=== PATIENT | female | born 1955 | race Caucasian/White ===

== ENCOUNTER 2018-12-01 16:35 | Emergency (ER) | payer OTHER ==
--- OUTSIDE RECORDS SUMMARY | 2018-12-01 16:37 | XMS REPORT ---
:1955 Author Organization eClinicalWorks Care Team Providers Name Role Phone Lisa Espinoza Provider Role Unavailable Allergies No Known Allergies Problems Problem Type Condition Code Onset Dates Condition Status Problem Kidney stones N20.0 Active Medications Medication Code System Code Instructions Start Date End Date Status Dosage Bactrim DS [facility] 56472765502 800-160 MG Orally Feb 08, Feb 18, Active 1 tablet Twice a day 2017 2017 Results No Known Results Summary Purpose eClinicalWorks Submission
--- OUTSIDE RECORDS SUMMARY | 2018-12-01 16:37 | XMS REPORT ---
:1955 Author Organization eClinicalWorks Care Team Providers Name Role Phone Lisa Espinoza Provider Role Unavailable Allergies, Adverse Reactions, Alerts Substance Reaction Event Type N.K.D.A. Info Not Available Non Drug Allergy Problems Problem Type Condition Code Onset Dates Condition Status Assessment Hx: UTI (urinary tract infection) Z87.440 Active Problem Kidney stones N20.0 Active Medications Medication Code System Code Instructions Start Date End Date Status Dosage Bactrim DS NDC 0 Active not defined Results Name Result Date Reference Range Unit Abnormality Flag URINALYSIS AUTO W/O SCOPE (53908) ----JAYME 1+ 20171206 ----NIT neg 20171206 ----PROTEIN neg 20171206 ----pH 6.5 20171206 ----BLO trace 20171206 ----GLUCOSE neg 20171206 ----BILIRUBIN neg 20171206 ----KETONES neg 20171206 ----SPECIFIC GRAVITY 1.010 20171206 PVR ----PVR 0 [id number] Summary Purpose eClinicalWorks Submission
--- OUTSIDE RECORDS SUMMARY | 2018-12-01 16:37 | XMS REPORT ---
:1955 Author Organization eClinicalWorks Care Team Providers Name Role Phone Lisa Espinoza Provider Role Unavailable Allergies, Adverse Reactions, Alerts Substance Reaction Event Type N.K.D.A. Info Not Available Non Drug Allergy Problems Problem Type Condition Code Onset Dates Condition Status Assessment Kidney stones N20.0 Active Problem Kidney stones N20.0 Active Assessment Hx: UTI (urinary tract infection) Z87.440 Active Medications Medication Code Code Instructions Start End Status Dosage System Date Date Nortriptyline HCl [facility] [id number] 50 MG Orally Active 1 capsule Once a day at bedtime Metoprolol Tartrate [facility] 76518729377 25 MG Orally Active 1 tablet Twice a day with food Hydrochlorothiazide [facility] 35969496948 12.5 MG Orally Active 1 capsule Once a day in the morning Vitamin D3 [facility] [id number] 1000 UNIT Active 1 capsule Orally Once a day Results Name Result Date Reference Range Unit Abnormality Flag URINALYSIS AUTO W/O SCOPE (18596) ----NIT neg [id number] ----URO 0.2 [id number] ----PROTEIN neg [id number] ----pH 7.5 20180904 ----BLO neg [id number] ----GLUCOSE neg [id number] ----JAYME neg [id number] ----BILIRUBIN neg [id number] ----KETONES neg [id number] ----SPECIFIC GRAVITY 1.010 20180904 Summary Purpose eClinicalWorks Submission
[2018-12-01 17:22] LABS: Absolute Lymphocytes (CBC) 1.6 K/uL (0.7-4.9); Basophils % 0.9 % (0-1.3); Hematocrit 41.1 % (36.0-45.0); Lymphocytes % 18.3 % (15.3-44.8); MPV 8.3 fL (7.6-11.3); Monocytes % 7.2 % (3.3-12.3); RBC Red Blood Cell Count 4.96 M/uL (3.86-4.86)
--- NOTE | 2018-12-01 17:30 | RAD REPORT ---
EXAM DESCRIPTION: CT - Stone Protocol - 12/01/2018 5:17 pm CLINICAL HISTORY: Flank pain. FLANK PAIN TECHNIQUE: Axial images were obtained without oral or IV contrast. Lack of contrast limits solid org an and vascular assessment. The [id number] spans the entirety of the system partially obscuring uppermost abdomen and lung bases. Coronal reformatted images were obtained and reviewed. All CT scans are performed using dose optimization technique as appropriate and may include automated exposure control or mA/KV adjustment according to patient size. FINDINGS: The lower lung hel[place] are clear. Cholecystectomy clips. Imaged portions of the liver and spleen show no suspicious findings on non-contrast imaging. The panc reas and adrenal glands are normal. No pathologic lymphadenopathy in the abdomen or pelvis. Calcifications in both kidneys and the appearance of milk of calcium within cysts. No hydronephrosis. No obstructing genitourinary calculus. No bowel obstruction, free air, free fluid or abscess. Normal appendix noted.Sigmoid diverticulosis w ithout diverticulitis. Moderate lumbar degenerative changes. IMPRESSION: No obstructing calculus or hydronephrosis seen. Sigmoid diverticulosis coli without diverticulitis.
[2018-12-01 17:36] LABS: Albumin 3.8 g/dL (3.4-5.0); Bilirubin Direct 0.1 mg/dL (0-0.2); Bilirubin Total 0.3 mg/dL (0.2-1.0); Potassium 3.7 mmol/L (3.5-5.1); Protein, Total 7.6 g/dL (6.4-8.2)
[2018-12-01 17:36] LABS: Urine Blood TRACE (NEG); Urine Glucose NEGATIVE (NEG); Urine Protein NEGATIVE (NEG); Urine Specific Gravity 1.015 (1.005-1.030)
[2018-12-01] MEDS ORDERED: NA CHLORIDE 0.9% 1,000 ML ONE (17:39)
[2018-12-01 18:06] LABS: Urine Bacteria <20 /HPF (<20); Urine Culture Reflex Order NOT NEEDED; Urine RBC <5 /HPF (NONE SEEN)
--- NOTE | 2018-12-01 18:34 | ER ---
Nurse's Notes [facility] Name: Nargis Au Age: 63 yrs Sex: Female : 1955 Arrival Date: 12/01/2018 Time: 16:37 Bed 6 Private MD: Maria Isabel Krause K Diagnosis: Low back pain Presentation: 12/01 16:41 Presenting complaint: Patient states: right flank pain since last night, denies N/V/D la1 or fevers. Transition of care: patient was not received from another setting of care. Onset of symptoms was December 01, 2018. Risk Assessment: Do you want to hurt yourself or someone else? Patient reports no desire to harm self or others. Initial Sepsis Screen: Does the patient meet any 2 criteria? No. Patient's initial sepsis screen is negative. Does the patient have a suspected source of infection? No. Patient's initial sepsis screen is negative. Care prior to arrival: None. 16:41 Method Of Arrival: Ambulatory la1 16:41 Acuity: DEWEY 3 la1 Historical: - Allergies: 16:42 No Known Allergies; la1 - PMHx: 16:42 pvc; kidney stones; la1 - PSHx: 16:42 Cholecystectomy; D \T\ C; la1 - Immunization history:: Adult Immunizations up to date. - Social history:: Smoking status: Patient/guardian denies using tobacco. - Ebola Screening: : No symptoms or risks identified at this time. Screenin:00 Abuse screen: Denies threats or abuse. Denies injuries from another. Nutritional aj1 screening: No deficits noted. Tuberculosis screening: No symptoms or risk factors identified. 19:09 Fall Risk None identified. aj1 Assessment: 17:00 General: Appears in no apparent distress. comfortable, Behavior is calm, cooperative, aj1 appropriate for age. Pain: Complains of pain in left low back Pain radiates to posterior aspect of right lateral abdomen and anterior aspect of right lateral abdomen. Neuro: Level of Consciousness is awake, alert, obeys commands, Oriented to person, place, time, situation. Cardiovascular: Patient's skin is warm and dry. Respiratory: Airway is patent Respiratory effort is even, unlabored, Respiratory pattern is regular, symmetrical. GI: No signs and/or symptoms were reported involving the gastrointestinal system. : Reports history of kidney stones Denies burning with urination, urinary frequency. EENT: No signs and/or symptoms were reported regarding the EENT system. Derm: No signs and/or symptoms reported regarding the dermatologic system. Skin is pink, warm \T\ dry. normal. Musculoskeletal: No signs and/or symptoms reported regarding the musculoskeletal system. Circulation, motion, and sensation intact. Range of motion: intact in all extremities. 18:02 Reassessment: Patient appears in no apparent distress at this time. No changes from aj1 previously documented assessment. Patient and/or family updated on plan of care and expected duration. Pain level reassessed. Patient is alert, oriented x 3, equal unlabored respirations, skin warm/dry/pink. 19:09 Reassessment: Patient appears in no apparent distress at this time. No changes from aj1 previously documented assessment. Patient and/or family updated on plan of care and expected duration. Pain level reassessed. Patient is alert, oriented x 3, equal unlabored respirations, skin warm/dry/pink. Vital Signs: 16:42 BP 148 / 71; Pulse 74; Resp 16; Temp 97.8; Pulse Ox 98% on R/A; Weight 98.88 kg; Height la1 5 ft. 4 in. (162.56 cm); 17:45 BP 134 / 75; Pulse 74; Resp 18; Pulse Ox 100% on R/A; aj1 18:29 BP 129 / 76; Pulse 71; Resp 18; Pulse Ox 95% on R/A; aj1 16:42 Body Mass Index 37.42 (98.88 kg, 162.56 cm) la1 ED Course: 16:37 Patient arrived in ED. dp 16:38 Maria Isabel Krause MD is Private Physician. dp 16:41 Triage completed. la1 16:42 Arm band placed on left wrist. la1 16:44 [facility] pm1 16:44 Evin Wooten MD is Attending Physician. pm1 16:45 Raegan Bella RN is Primary Nurse. aj1 17:00 Patient has correct armband on for positive identification. aj1 17:00 No provider procedures requiring assistance completed. aj1 17:10 Initial lab(s) drawn, by me, sent to lab. Inserted saline lock: 22 gauge in right dh3 antecubital area, using aseptic technique. Blood collected. 17:14 CT completed. Patient tolerated procedure well. Patient moved back from CT. bq 17:17 CT Stone Protocol In Process Unspecified. EDMS 19:09 IV discontinued, intact, bleeding controlled, No redness/swelling at site. Pressure aj1 dressing applied. Administered Medications: 17:29 Drug: NS 0.9% 1000 ml Route: IV; Rate: 1000 ml; Site: right antecubital; hb 19:10 Follow up: IV Status: Completed infusion; IV Intake: 1000ml aj1 Intake: 19:10 IV: 1000ml; Total: 1000ml. aj1 Outcome: 18:35 Discharge ordered by MD. pm1 19:09 Discharged to home ambulatory. aj1 19:09 Condition: good 19:09 Discharge instructions given to patient, Instructed on discharge instructions, follow up and referral plans. Demonstrated understanding of instructions, follow-up care. 19:10 Patient left the ED. aj1 Signatures: Dispatcher [employer] EDSC Raegan Bella RN RN aj1 Ailyn Ramos Lee, RN RN la1 Felix Torres, RODNEY M[employer] INSTRUCTIONAL DESIGNER pm1 Shea Clark RN RN hb Herrera, Deanna 3 Giancarlo Hartmann
--- NOTE | 2018-12-01 18:35 | EDPHYS ---
Physician Documentation [facility] Name: Nargis Au Age: 63 yrs Sex: Female : 1955 Arrival Date: 12/01/2018 Time: 16:37 Bed 6 Private MD: Maria Isabel Krause K ED Physician Evin Wooten HPI: 12/01 17:05 This 63 yrs old Female presents to ER via Ambulatory with complaints of Right pm1 Flank Pain. 17:05 The patient complains of pain in the right low back. The pain does not radiate. Onset: pm1 The symptoms/episode began/occurred yesterday. Modifying factors: The symptoms are alleviated by nothing. the symptoms are aggravated by movement. Associated signs and symptoms: The patient has no apparent associated signs or symptoms, Pertinent negatives: diarrhea, dizziness, dysuria, fever, urinary frequency, headache, hematuria, nausea, vomiting. Severity of pain: in the emergency department the pain has improved. The patient has not recently seen a physician. Patient believes that she had a UTI 1 week ago and took over the counter medications and it resolved after a few days. Historical: - Allergies: 16:42 No Known Allergies; la1 - PMHx: 16:42 pvc; kidney stones; la1 - PSHx: 16:42 Cholecystectomy; D \T\ C; la1 - Immunization history:: Adult Immunizations up to date. - Social history:: Smoking status: Patient/guardian denies using tobacco. - Ebola Screening: : No symptoms or risks identified at this time. ROS: 17:05 Constitutional: Negative for fever, chills, and weight loss, Eyes: Negative for injury, pm1 pain, redness, and discharge, ENT: Negative for injury, pain, and discharge, Neck: Negative for injury, pain, and swelling, Cardiovascular: Negative for chest pain, palpitations, and edema, Respiratory: Negative for shortness of breath, cough, wheezing, and pleuritic chest pain, Abdomen/GI: Negative for abdominal pain, nausea, vomiting, diarrhea, and constipation. 17:05 : Negative for injury, bleeding, discharge, and swelling, MS/Extremity: Negative for injury and deformity, Skin: Negative for injury, rash, and discoloration. 17:05 Neuro: Negative for headache, weakness, numbness, tingling, and seizure. 17:05 Back: Positive for flank pain, on the right, Negative for decreased range of motion. Exam: 17:05 Constitutional: This is a well developed, well nourished patient who is awake, alert, pm1 and in no acute distress. Neck: Trachea midline, no thyromegaly or masses palpated, and no cervical lymphadenopathy. Supple, full range of motion without nuchal rigidity, or vertebral point tenderness. No Meningismus. Chest/axilla: Normal chest wall appearance and motion. Nontender with no deformity. No lesions are appreciated. Cardiovascular: Regular rate and rhythm with a normal S1 and S2. No gallops, murmurs, or rubs. Normal PMI, no JVD. No pulse deficits. Respiratory: Lungs have equal breath sounds bilaterally, clear to auscultation and percussion. No rales, rhonchi or wheezes noted. No increased work of breathing, no retractions or nasal flaring. Abdomen/GI: Soft, non-tender, with normal bowel sounds. No distension or tympany. No guarding or rebound. No evidence of tenderness throughout. Back: No spinal tenderness. No costovertebral tenderness. Full range of motion. Skin: Warm, dry with normal turgor. Normal color with no rashes, no lesions, and no evidence of cellulitis. MS/ Extremity: Pulses equal, no cyanosis. Neurovascular intact. Full, normal range of motion. 17:05 Neuro: Orientation: is normal, Motor: is normal, moves all fours, Sensation: is normal, no obvious gross deficits, Gait: is steady, at a normal pace, without difficulty. Vital Signs: 16:42 BP 148 / 71; Pulse 74; Resp 16; Temp 97.8; Pulse Ox 98% on R/A; Weight 98.88 kg; Height la1 5 ft. 4 in. (162.56 cm); 17:45 BP 134 / 75; Pulse 74; Resp 18; Pulse Ox 100% on R/A; aj1 18:29 BP 129 / 76; Pulse 71; Resp 18; Pulse Ox 95% on R/A; aj1 16:42 Body Mass Index 37.42 (98.88 kg, 162.56 cm) la1 MDM: 16:49 Patient medically screened. pm1 18:32 Data reviewed: vital signs. Data interpreted: Pulse oximetry: on room air is 95 %. pm1 Interpretation: normal. Counseling: I had a detailed discussion with the patient and/or guardian regarding: the historical points, exam findings, and any diagnostic results supporting the discharge/admit diagnosis, lab results, radiology results, the need for outpatient follow up, to return to the emergency department if symptoms worsen or persist or if there are any questions or concerns that arise at home. 18:32 ED course: Recommend MRI of back if no improvement. Impression is likely muscloskeletal pm1 pain with negative CT and labs for UTI, genitourinary stones, appendicitis given complaint of right flank pain. 18:32 ED course: Patient offered prescription for pain medications. Patient refused because pm1 she does not like medications that make her sleepy or drowsy. 12/01 16:57 Order name: Basic Metabolic Panel pm12/01 16:57 Order name: CBC with Diff pm1 12/01 16:57 Order name: Creatinine for Radiology; Complete Time: 18:23 pm1 12/01 16:57 Order name: Hepatic Function; Complete Time: 18:23 pm1 12/01 16:57 Order name: Lipase; Complete Time: 18:23 pm1 12/01 16:58 Order name: Basic Metabolic Panel; Complete Time: 18:23 EDMS 12/01 16:57 Order name: IV Saline Lock; Complete Time: 17:13 pm1 12/01 16:57 Order name: Labs collected and sent; Complete Time: 17:13 pm1 12/01 16:57 Order name: Urine Dipstick-Ancillary (obtain specimen); Complete Time: 16:59 pm1 12/01 16:58 Order name: CBC with Automated Diff; Complete Time: 17:33 EDMS 12/01 17:03 Order name: CT Stone Protocol; Complete Time: 17:33 pm1 12/01 17:07 Order name: Urine Dipstick--Ancillary (enter results); Complete Time: 18:23 ms 12/01 17:33 Order name: Urine Microscopic Only; Complete Time: 18:23 pm1 12/01 16:57 Order name: Urine Test (obtain specimen); Complete Time: 16:59 pm1 Administered Medications: 17:29 Drug: NS 0.9% 1000 ml Route: IV; Rate: 1000 ml; Site: right antecubital; hb 19:10 Follow up: IV Status: Completed infusion; IV Intake: 1000ml aj1 Disposition: 12/01/18 18:35 Discharged to Home. Impression: Low back pain. - Condition is Stable. - Discharge Instructions: Back Pain, Adult, Flank Pain, Adult. - Medication Reconciliation Form, Thank You Letter, Antibiotic Education, Prescription Opioid Use form. - Follow up: Emergency Department; When: As needed; Reason: Worsening of condition. Follow up: Private Physician; When: 2 - 3 days; Reason: Recheck today's complaints, Continuance of care, Re-evaluation by your physician. - Problem is new. - Symptoms have improved. Signatures: Dispatcher [employer] EDMS Raegan Bella RN RN aj1 Bentley Strauss RN RN la1 Felix Torres NP [employer] CLERK pm1 Shea Clark RN RN Corrections: (The following items were deleted from the chart) 19:10 18:35 12/01/2018 18:35 Discharged to Home. Impression: Low back pain. Condition is aj1 Stable. Forms are Medication Reconciliation Form, Thank You Letter, Antibiotic Education, Prescription Opioid Use. Follow up: Emergency Department; When: As needed; Reason: Worsening of condition. Follow up: Private Physician; When: 2 - 3 days; Reason: Recheck today's complaints, Continuance of care, Re-evaluation by your physician. Problem is new. Symptoms have improved. pm1
== END 2018-12-01 19:10 | disposition home or self-care (01) ==
LOC: ER 16:35
DX: M54.5 Low back pain (principal); K57.30 Diverticulosis of large intestine without perforation or abscess without bleeding
CPT/HCPCS: 36415; 74176; 76377; 80048; 80076; 81003; 81015; 83690; 85025; 96360; 96361; 99284; J7030

== ENCOUNTER 2020-02-17 10:25 | Emergency (ER) | payer OTHER ==
[2020-02-17 11:32] LABS: Absolute Lymphocytes (CBC) 1.4 K/uL (0.7-4.9); Basophils % 0.9 % (0-1.3); Hematocrit 38.2 % (36.0-45.0); Lymphocytes % 21.2 % (15.3-44.8); MPV 8.3 fL (7.6-11.3)
[2020-02-17] MEDS ORDERED: NA CHLORIDE 0.9% 1,000 ML ONE (11:37)
[2020-02-17 11:53] LABS: ALT/SGPT 28 U/L (12-78); AST/SGOT 17 U/L (15-37); Albumin 3.7 g/dL (3.4-5.0); Alkaline Phosphatase 114 U/L (45-117); BUN Blood Urea Nitrogen 10 mg/dL (7-18); Bicarbonate 27 mmol/L (21-32); Bilirubin Direct < 0.1 mg/dL (0-0.2); Bilirubin Total 0.3 mg/dL (0.2-1.0); Glucose Level 105 mg/dL (74-106); Lipase 41 U/L (73-393); Potassium 3.5 mmol/L (3.5-5.1); Protein, Total 7.4 g/dL (6.4-8.2); Sodium Level 141 mmol/L (136-145); Troponin (Emerg Dept Use Only) < 0.02 ng/mL (0.0-0.045)
--- NOTE | 2020-02-17 12:15 | RAD REPORT ---
EXAM DESCRIPTION: CT - Abdomen Pelvis W Contrast - 02/17/2020 11:56 am CLINICAL HISTORY: Abdominal pain COMPARISON: 2019 TECHNIQUE: Computed axial tomography of the abdomen pelvis was obtained. 100 cc Isovue-300 was admin istered intravenously. Oral contrast was not requested which limits evaluation of bowel. All CT scans are performed using dose optimization technique as appropriate and may include automated exposure control or mA/KV adjustment according to patient size. FINDINGS: The liver, spleen, pancreas, and adrenals appear unremarkable. Bilateral renal cysts and calculi. 11 millimeter calcification lies within the posterior aspect of a 23 millimeter cystic structure within the right kidney. This may represent a caliceal diverticulum co ntaining calculus. Mild renal cortical thinning perhaps secondary to prior inflammation Diverticula stem from the colon without evidence of diverticulitis. No adnexal mass. An abnormal appendix is not seen. Tiny umbilical hernia. Cholecystectomy IMPRESSION: Bilateral renal calculi Possible right calyceal diverticulum containing a calculus
[2020-02-17 12:36] LABS: Urine Bacteria NONE SEEN /HPF (<20); Urine Culture Reflex Order NOT NEEDED; Urine RBC NONE SEEN /HPF (NONE SEEN)
[2020-02-17 13:49] LABS: Urine Blood NEGATIVE (NEG); Urine Glucose NEGATIVE (NEG); Urine Protein NEGATIVE (NEG); Urine pH 6.5 (5.0-7.0)
--- NOTE | 2020-02-17 14:19 | ER ---
Nurse's Notes [facility] Name: Nargis Au Age: 64 yrs Sex: Female : 1955 Arrival Date: 02/17/2020 Time: 10:32 Bed 19 Private MD: Maria Isabel Krause K Diagnosis: Unspecified abdominal pain Presentation: 02/16 10:40 Chief complaint: Patient states: Upper abdominal pain that wraps around to back for ll1 Sunday. 1 episode of vomiting on Sunday, little nausea since. No fever. Coronavirus screen: Client denies travel out of the [place] in the last 14 days. nausea, vomiting. Client presents with at least one sign or symptom that may indicate coronavirus-19. Standard/surgical mask placed on the client. Ebola Screen: Patient denies travel to an Ebola-affected area in the 21 days before illness onset. Initial Sepsis Screen: Does the patient meet any 2 criteria? No. Patient's initial sepsis screen is negative. Does the patient have a suspected source of infection? Yes: Acute abdominal pain. Risk Assessment: Do you want to hurt yourself or someone else? Patient reports no desire to harm self or others. Onset of symptoms was January 13, 2020. 10:40 Method Of Arrival: Ambulatory ll1 10:40 Acuity: DEWEY 3 ll1 Historical: - Allergies: 10:42 No Known Allergies; ll1 - PMHx: 10:42 Kidney stones; PVC; ll1 - PSHx: 10:42 Cholecystectomy; D \T\ C; ll1 - Immunization history:: Flu vaccine is not up to date. - Social history:: Smoking status: Patient denies any tobacco usage or history of. Screenin:21 Abuse screen: Denies threats or abuse. Denies injuries from another. Nutritional ph screening: No deficits noted. Tuberculosis screening: No symptoms or risk factors identified. Fall Risk None identified. Assessment: 11:41 General: Appears in no apparent distress. comfortable, Behavior is calm, cooperative, ph appropriate for age. Pain: Complains of pain in right upper quadrant Pain radiates to back Pain Quality of pain is described as sharp, stabbing. Neuro: Level of Consciousness is awake, alert, obeys commands, Oriented to person, place, time, situation. Cardiovascular: Capillary refill < 3 seconds in bilateral fingers Patient's skin is warm and dry. Respiratory: Airway is patent Respiratory effort is even, unlabored, Respiratory pattern is regular, symmetrical. GI: Abdomen is round non-distended, Reports upper abdominal pain, nausea, vomiting, on Jovi Patient currently denies diarrhea. Derm: Skin is intact, is healthy with good turgor, Skin is pink, warm \T\ dry. Musculoskeletal: Circulation, motion, and sensation intact. Range of motion: intact in all extremities. 11:50 Reassessment: Patient appears in no apparent distress at this time. Patient and/or ph family updated on plan of care and expected duration. Pain level reassessed. Patient is alert, oriented x 3, equal unlabored respirations, skin warm/dry/pink. Pt taken to CT via wheelchair. 12:50 Reassessment: Patient appears in no apparent distress at this time. Patient and/or ph family updated on plan of care and expected duration. Pain level reassessed. Patient is alert, oriented x 3, equal unlabored respirations, skin warm/dry/pink. 13:53 Reassessment: Patient appears in no apparent distress at this time. Patient and/or ph family updated on plan of care and expected duration. Pain level reassessed. Patient is alert, oriented x 3, equal unlabored respirations, skin warm/dry/pink. Vital Signs: 10:40 BP 140 / 56; Pulse 79; Resp 18; Temp 98.3; Pulse Ox 100% ; Weight 95.25 kg; Height 5 ll1 ft. 4 in. (162.56 cm); Pain 5/10; 12:14 BP 125 / 78; Pulse 72; Resp 18; Pulse Ox 100% on R/A; ph 13:30 BP 112 / 73; Pulse 71; Resp 18; Pulse Ox 100% on R/A; ph 14:50 BP 118 / 78; Pulse 72; Resp 16; Temp 97.8; Pulse Ox 99% on R/A; ph 10:40 Body Mass Index 36.05 (95.25 kg, 162.56 cm) ll1 ED Course: 10:32 Patient arrived in ED. mr 10:32 Maria Isabel Krause MD is Private Physician. mr 10:42 Triage completed. ll1 10:42 Arm band placed on Patient placed in an exam room, on a stretcher. ll1 10:44 Brandi Freeman RN is Primary Nurse. ph 10:44 Felix Torres NP is PHCP. pm1 10:44 Seth Flores MD is Attending Physician. pm1 11:21 Initial lab(s) drawn, by me, sent to lab. EKG done. Inserted saline lock: 20 gauge in ph right antecubital area, using aseptic technique. Blood collected. 11:22 Patient has correct armband on for positive identification. Placed in gown. Bed in low ph position. Call light in reach. Side rails up X 1. Pulse ox on. NIBP on. Door closed. Warm blanket given. 11:56 CT Abd/Pelvis - IV Contrast Only In Process Unspecified. EDMS 14:50 No provider procedures requiring assistance completed. IV discontinued, intact, ph bleeding controlled, No redness/swelling at site. Pressure dressing applied. Administered Medications: 11:50 Drug: NS 0.9% 1000 ml Route: IV; Rate: 1000 ml; Site: right antecubital; ph 14:52 Follow up: Response: No adverse reaction; IV Status: Completed infusion; IV Intake: ph 1000ml Intake: 14:52 IV: 1000ml; Total: 1000ml. ph Outcome: 14:18 Discharge ordered by . pm1 14:50 Discharged to home ambulatory. ph 14:50 Condition: good 14:50 Discharge instructions given to patient, Instructed on discharge instructions, follow up and referral plans. Demonstrated understanding of instructions, follow-up care. 14:50 Patient left the ED. ph Signatures: Dispatcher [employer] EDNM Natalie Rivera mr Brandi Freeman RN RN Felix Torres, RODNEY POOL LIFEGUARD pm1 Shola Garcia RN RN ll1
--- NOTE | 2020-02-17 14:19 | EDPHYS ---
Physician Documentation [facility] Name: Nargis Au Age: 64 yrs Sex: Female : 1955 Arrival Date: 02/17/2020 Time: 10:32 Bed 19 Private MD: Maria Isabel Krause K ED Physician Seth Flores HPI: 02/16 11:05 This 64 yrs old Female presents to ER via Ambulatory with complaints of pm1 Abdominal Pain, Back Pain. 11:05 The patient presents with abdominal pain in the epigastric area. pm1 11:05 Onset: The symptoms/episode began/occurred 4 day(s) ago. The symptoms radiate to back. pm1 Associated signs and symptoms: Pertinent positives: vomit x 1 Sunday . The symptoms are described as burning. Modifying factors: The symptoms are alleviated by decreased PO intake. the symptoms are aggravated by food. Severity of pain: in the emergency department the pain has improved. The patient has not recently seen a physician. Historical: - Allergies: 10:42 No Known Allergies; ll1 - PMHx: 10:42 Kidney stones; PVC; ll1 - PSHx: 10:42 Cholecystectomy; D \T\ C; ll1 - Immunization history:: Flu vaccine is not up to date. - Social history:: Smoking status: Patient denies any tobacco usage or history of. ROS: 11:05 Constitutional: Negative for fever, chills, and weight loss, Neck: Negative for injury, pm1 pain, and swelling, Cardiovascular: Negative for chest pain, palpitations, and edema, Respiratory: Negative for shortness of breath, cough, wheezing, and pleuritic chest pain. 11:05 : Negative for injury, bleeding, discharge, and swelling, MS/Extremity: Negative for injury and deformity, Skin: Negative for injury, rash, and discoloration, Neuro: Negative for headache, weakness, numbness, tingling, and seizure. 11:05 Abdomen/GI: Positive for abdominal pain, nausea and vomiting, Negative for diarrhea, constipation. 11:05 Back: Positive for pain. Exam: 11:05 Constitutional: This is a well developed, well nourished patient who is awake, alert, pm1 and in no acute distress. Head/Face: Normocephalic, atraumatic. Chest/axilla: Normal chest wall appearance and motion. Nontender with no deformity. No lesions are appreciated. Cardiovascular: Regular rate and rhythm with a normal S1 and S2. No gallops, murmurs, or rubs. Normal PMI, no JVD. No pulse deficits. Respiratory: Lungs have equal breath sounds bilaterally, clear to auscultation and percussion. No rales, rhonchi or wheezes noted. No increased work of breathing, no retractions or nasal flaring. 11:05 Back: No spinal tenderness. No costovertebral tenderness. Full range of motion. Skin: Warm, dry with normal turgor. Normal color with no rashes, no lesions, and no evidence of cellulitis. MS/ Extremity: Pulses equal, no cyanosis. Neurovascular intact. Full, normal range of motion. 11:05 Abdomen/GI: Inspection: abdomen appears normal, Palpation: soft, in all quadrants, mild abdominal tenderness, in the epigastric area. 11:05 Neuro: Exam negative for acute changes, Orientation: is normal, Mentation: is normal, Motor: is normal, moves all fours. Vital Signs: 10:40 BP 140 / 56; Pulse 79; Resp 18; Temp 98.3; Pulse Ox 100% ; Weight 95.25 kg; Height 5 ll1 ft. 4 in. (162.56 cm); Pain 5/10; 12:14 BP 125 / 78; Pulse 72; Resp 18; Pulse Ox 100% on R/A; ph 13:30 BP 112 / 73; Pulse 71; Resp 18; Pulse Ox 100% on R/A; ph 14:50 BP 118 / 78; Pulse 72; Resp 16; Temp 97.8; Pulse Ox 99% on R/A; ph 10:40 Body Mass Index 36.05 (95.25 kg, 162.56 cm) ll1 MDM: 10:44 Patient medically screened. pm1 14:17 Data reviewed: vital signs. Data interpreted: Pulse oximetry: on room air is 100 %. pm1 Interpretation: normal. Counseling: I had a detailed discussion with the patient and/or guardian regarding: the historical points, exam findings, and any diagnostic results supporting the discharge/admit diagnosis, lab results, radiology results, the need for outpatient follow up, a mobile development manager, a urologist, to return to the emergency department if symptoms worsen or persist or if there are any questions or concerns that arise at home. 14:17 ED course: Patient did not want any medications from the ER for prescription. She said pm1 that she would just take some OTC pepcid and will follow up with GI as recommended. 02/16 10:54 Order name: Basic Metabolic Panel; Complete Time: 11:53 pm1 02/16 10:54 Order name: CBC with Diff; Complete Time: 11:37 pm1 02/16 10:54 Order name: Hepatic Function; Complete Time: 11:53 pm1 02/16 10:54 Order name: Lipase; Complete Time: 11:53 pm1 02/16 10:54 Order name: Troponin (emerg Dept Use Only); Complete Time: 11:53 pm1 02/16 12:19 Order name: Urine Microscopic Only; Complete Time: 13:00 pm1 02/16 10:54 Order name: IV Saline Lock; Complete Time: 11:21 pm1 02/16 10:54 Order name: Labs collected and sent; Complete Time: 11:21 pm1 02/16 10:54 Order name: CT Abd/Pelvis - IV Contrast Only; Complete Time: 12:18 pm1 02/16 10:54 Order name: EKG; Complete Time: 10:55 pm1 02/16 12:41 Order name: CREATININE WHOLE BLOOD; Complete Time: 13:00 EDMS 02/16 13:46 Order name: Urine Dipstick--Ancillary (enter results) bd 02/16 13:46 Order name: Urine Dipstick-Ancillary; Complete Time: 14:17 EDMS 02/16 10:54 Order name: NPO; Complete Time: 11:21 pm1 02/16 10:54 Order name: Urine Dipstick-Ancillary (obtain specimen); Complete Time: 12:13 pm1 02/16 10:54 Order name: EKG - Nurse/Tech; Complete Time: 11:20 pm1 Administered Medications: 11:50 Drug: NS 0.9% 1000 ml Route: IV; Rate: 1000 ml; Site: right antecubital; ph 14:52 Follow up: Response: No adverse reaction; IV Status: Completed infusion; IV Intake: ph 1000ml Disposition: 16:44 Co-signature as Attending Physician, Seth Flores MD. rn Disposition: 02/17/20 14:18 Discharged to Home. Impression: Unspecified abdominal pain. - Condition is Stable. - Discharge Instructions: Abdominal Pain, Adult. - Medication Reconciliation Form, Thank You Letter, Antibiotic Education, Prescription Opioid Use form. - Follow up: Emergency Department; When: As needed; Reason: Worsening of condition. Follow up: Private Physician; When: 2 - 3 days; Reason: Recheck today's complaints, Continuance of care, Re-evaluation by your physician. - Problem is new. - Symptoms have improved. Signatures: Dispatcher [employer] EDMS Seth Flores MD MD rn Brandi Freeman RN RN ph Felix Torres, BAKING POWDER MIXER BAKING POWDER MIXER pm1 Shola Garcia RN RN ll1 Corrections: (The following items were deleted from the chart) 14:50 14:18 02/17/2020 14:18 Discharged to Home. Impression: Unspecified abdominal pain. ph Condition is Stable. Forms are Medication Reconciliation Form, Thank You Letter, Antibiotic Education, Prescription Opioid Use. Follow up: Emergency Department; When: As needed; Reason: Worsening of condition. Follow up: Private Physician; When: 2 - 3 days; Reason: Recheck today's complaints, Continuance of care, Re-evaluation by your physician. Problem is new. Symptoms have improved. pm1
[2020-02-17 15:11] VITALS: BP 118/78; TEMP 97.8; O2SAT 99
--- NOTE | 2020-02-18 05:57 | EKG ---
Test Date: 2020-02-17 Test Time: 11:38:49 Customer Accounts Advisor: PH MEASUREMENT RESULTS: Intervals: Rate: 72 [place]: 136 QRSD: 106 QT: 392 QTc: 429 [place]: P: 39 [place]: 136 QRS: 13 T: 2 INTERPRETIVE STATEMENTS: Normal sinus rhythm Low voltage QRS Nonspecific ST and T wave abnormality Abnormal ECG Compared to ECG 08/07/2008 08:24:22 Low QRS voltage now present ST (T wave) deviation now present Electronically Signed On 02-18-20 05:55:40 CDT by Isac Arambula
--- OUTSIDE RECORDS SUMMARY | 2020-02-19 13:08 | XMS REPORT | Continuity of Care Document ---
:1955 Author Organization [facility] t Address [facility] [place] [address] Care Team Providers Name Role Phone Unavailable Unavailable Unavailable Problems Condition Condition Condition Status Onset Resolution Last Treating Co mments Source Name Details Category Date Date Treatment Clinician Date Kidney Kidney Problem Active [facility] stones stones kes - [facility] ent Clinics Allergies, Adverse Reactions, Alerts This patient has no known allergies or adverse reactions. Medications Ordered Filled Start Stop Current Ordering Indication Dosage Frequency Signature Comments Components Source Medication Medication Date Date Medication? Clinician (SIG) Name Name Nortriptyli Nortriptyli Yes Lisa [address] [facility] ne HCl ne HCl Olga at bedtime [facility] u[facility] - [facility] ent Clinics Metoprolol Metoprolol Yes Lisa [address] [facility] Tartrate Tartrate [place] with food [facility] - [facility] ent Clinics Hydrochloro Hydrochloro Yes Lisa [address] [facility] thiazide thiazide [place] in the [facility] Vitamin D3 Vitamin D3 Yes Lisa [address] [facility] [place] [facility] ent [facility] Procedures This patient has no known procedures. Encounters Start End Encounter Admission Attending Care Care Encounter Source Date/Time Date/Time Type Type Clinicians Facility Department ID 2019-10-07 2019-10-07 Outpatient Daniel Khan [id number] [facility] 13:14:00 13:14:00 t Specialty/U Renetta kes - Specialty rology [facility] l [facility] ent Clinics 2019-09-03 2019-09-03 Outpatient Daniel Khan [id number] [facility] 09:00:00 09:00:00 t Specialty/U Renetta kes - Specialty rology [facility]Urology Clinic l [facility] ent Clinics 2019-03-04 2019-03-04 Outpatient Daniel Khan [id number] [facility] 08:15:00 08:15:00 t Specialty/U Renetta kes - Specialty rology [facility]Urology Clinic l Clinic Outpati ent Clinics 2018-09-04 2018-09-04 Outpatient Daniel [place] [id number] [facility] 09:00:00 09:00:00 t Specialty/U Renetta kes - Specialty rology [facility]Urology Clinic l Clinic [facility] Clinics 2018-02-08 2018-02-08 Outpatient Daniel [place] [id number] [facility] 09:59:00 09:59:00 t Specialty/U Renetta kes - Specialty rology [facility]Urology Clinic l Clinic Outpati ent Clinics 2017-12-06 2017-12-06 Outpatient Daniel Sanchezt [id number] [facility] 11:00:00 11:00:00 t Specialty/U Renetta kes - Specialty rology [facility]Urology Clinic l Clinic [facility] ent Clinics Results This patient has no known results.
== END 2020-02-17 14:50 | disposition home or self-care (01) ==
LOC: ER 10:25
DX: R10.13 Epigastric pain (principal); Z87.442 Personal history of urinary calculi
CPT/HCPCS: 93005; 85025; 80048; 36415; 82565; 80076; 84484; 83690; 74177; Q9967; J7030; 81003; 81015; 96360; 96361; 99284

== ENCOUNTER 2024-06-04 17:40 | Emergency (ER) | payer OTHER ==
--- NOTE | 2024-06-04 19:15 | RAD REPORT ---
EXAMINATION: XR RIGHT FOOT CLINICAL INDICATION: Female, 69 years old. PAIN TECHNIQUE: Multiple views of the right foot were obtained. COMPARISON: No prior exam. FINDINGS: No acute fracture or dislocation. Small posterior moderate to large plantar calcaneal spur .
--- NOTE | 2024-06-04 19:56 | ER ---
Nurse's Notes [facility] Name: Nargis Au Age: 69 yrs Sex: Female : 1955 Arrival Date: 06/04/2024 Time: 17:40 Bed 20 Private MD: Diagnosis: Pain in right foot Presentation: 06/04 18:14 Chief complaint: Patient states: Pain to right foot - denies injury. Coronavirus ld1 screen: At this time, the client does not indicate any symptoms associated with coronavirus-19. Ebola Screen: No symptoms or risks identified at this time. Risk Assessment: Do you want to hurt yourself or someone else? Patient reports no desire to harm self or others. Onset of symptoms was June 04, 2024. 18:14 Method Of Arrival: Wheelchair ld1 18:14 Acuity: DEWEY 4 ld1 18:16 Initial Sepsis Screen: Does the patient meet any 2 criteria? No. Patient's initial ld1 sepsis screen is negative. Does the patient have a suspected source of infection? No. Patient's initial sepsis screen is negative. Triage Assessment: 18:15 General: Appears in no apparent distress. comfortable, Behavior is calm, cooperative, ld1 appropriate for age. Pain: Complains of pain in right foot Pain does not radiate. Pain currently is 8 out of 10 on a pain scale. Quality of pain is described as throbbing, Pain began 2-3 days ago. Is continuous. EENT: No signs and/or symptoms were reported regarding the EENT system. Neuro: Level of Consciousness is awake, alert, obeys commands, Oriented to person, place, time, situation. Cardiovascular: Capillary refill < 3 seconds Patient's skin is warm and dry. Respiratory: Airway is patent Respiratory effort is even, unlabored. GI: Abdomen is round non-distended. : No signs and/or symptoms were reported regarding the genitourinary system. Derm: No signs and/or symptoms reported regarding the dermatologic system. Musculoskeletal: No signs and/or symptoms reported regarding the musculoskeletal system. Historical: - Allergies: 18:15 No Known Allergies; ld1 - PMHx: 18:15 Kidney stones; PVC; ld1 - Immunization history:: Adult Immunizations up to date. - Infectious Disease History:: Denies. - Social history:: Smoking status: Patient denies any tobacco usage or history of. Screenin:30 [facility] ED Fall Risk Assessment (Adult) History of falling in the last 3 months, kc6 including since admission No falls in past 3 months (0 pts) Confusion or Disorientation No (0 pts) Intoxicated or Sedated No (0 pts) Impaired Gait Yes (1 pt) Mobility Assist Device Used No (0 pt) Altered Elimination No (0 pt) Score/Fall Risk Level 0 - 2 = Low Risk Oriented to surroundings, Maintained a safe environment, Educated pt \T\ family on fall prevention, incl call for assistance when getting out of bed. Abuse screen: Denies threats or abuse. Denies injuries from another. Nutritional screening: No deficits noted. Tuberculosis screening: No symptoms or risk factors identified. Assessment: 18:30 General: Appears in no apparent distress. comfortable, well groomed, well developed, kc6 Behavior is calm, cooperative, appropriate for age. Pain: Complains of pain in right foot. Neuro: Level of Consciousness is awake, alert, obeys commands, Oriented to person, place, time, situation, Appropriate for age. Cardiovascular: Capillary refill < 3 seconds. Respiratory: Airway is patent Trachea midline Respiratory effort is even, unlabored, Respiratory pattern is regular, symmetrical. GI: No signs and/or symptoms were reported involving the gastrointestinal system. : No signs and/or symptoms were reported regarding the genitourinary system. EENT: No signs and/or symptoms were reported regarding the EENT system. Derm: No signs and/or symptoms reported regarding the dermatologic system. Skin is intact, is healthy with good turgor, Skin is pink, warm \T\ dry. Musculoskeletal: Range of motion: limited in right ankle. Vital Signs: 18:14 Temp 98.5(TE); ld1 18:16 Pulse 91; Resp 18; Pulse Ox 97% on R/A; Weight 96.62 kg; Height 5 ft. 4 in. ; Pain 8/10;ld1 18:17 BP 125 / 66; ld1 20:05 BP 123 / 67; Pulse 84; Resp 18; Pulse Ox 98% ; cp4 18:16 Body Mass Index 36.56 (96.62 kg, 162.56 cm) ld1 18:16 Pain Scale: Adult ld1 ED Course: 17:44 Patient arrived in ED. ra3 18:04 Ware, Ismael, MD is Attending Physician. ec2 18:04 Eugenie Waggoner FNP-C is [facility]. kb 18:15 Triage completed. ld1 18:15 Arm band placed on right wrist. ld1 18:19 Ching Macdonald, RN is Primary Nurse. kc6 18:30 Patient has correct armband on for positive identification. Bed in low position. Call kc6 light in reach. Side rails up X 1. Pulse ox on. NIBP on. Door closed. Noise minimized. Lights dimmed. Warm blanket given. Pillow given. 18:30 Patient maintains SpO2 saturation greater than 95% on room air. kc6 18:53 Foot Right 3 View XRAY In Process Unspecified. EDMS 19:02 Report given to Alexandra Gregorio RN. kc6 20:26 Provided Education on: foot pain. cp4 20:26 No provider procedures requiring assistance completed. Patient did not have IV access cp4 during this emergency room visit. Administered Medications: No medications were administered Medication: 20:26 VIS not applicable for this client. cp4 Outcome: 19:56 Discharge ordered by . kb 20:26 Discharged to home ambulatory, cp4 20:26 Condition: stable 20:26 Discharge instructions given to patient, Instructed on discharge instructions, follow up and referral plans. medication usage, Demonstrated understanding of instructions, follow-up care, medications, Prescriptions given X 1, 20:27 Patient left the ED. cp4 Signatures: Dispatcher [employer] EDWI Eugenie Waggoner FNP-C FNP-Marianna Amaya RN RN ld1 Ching Macdonald, SOLANGE RN [facility] Ismael Ware MD MD ec2 Potter, Christina cp4 Leatha Ling ra3
--- NOTE | 2024-06-04 19:56 | EDPHYS ---
Physician Documentation [facility] Name: Nargis Au Age: 69 yrs Sex: Female : 1955 Arrival Date: 06/04/2024 Time: 17:40 Bed 20 Private MD: ED Physician Ismael Ware HPI: 06/04 23:04 This 69 yrs old Female presents to ER via Wheelchair with complaints of Foot Pain - kb Right. 23:04 Pt is a 69 year old female who presents for pain to right foot that started a few days kb ago. Denies injury or trauma. States the pain is constant and worse with ambulation. . Historical: - Allergies: 18:15 No Known Allergies; ld1 - PMHx: 18:15 Kidney stones; PVC; ld1 - Immunization history:: Adult Immunizations up to date. - Infectious Disease History:: Denies. - Social history:: Smoking status: Patient denies any tobacco usage or history of. ROS: 23:04 Constitutional: As per HPI kb Exam: 23:04 Constitutional: This is a well developed, well nourished patient who is awake, alert, kb and in no acute distress. Head/Face: Normocephalic, atraumatic. ENT: Moist Mucous membranes Cardiovascular: Regular rate Respiratory: Respirations even and unlabored. No increased work of breathing. Talking in full sentences Skin: Warm, dry with normal turgor. Normal color. Neuro: Awake and alert, GCS 15, oriented to person, place, time, and situation. 23:04 Musculoskeletal/extremity: Extremities: grossly normal except: noted in the lateral side of right heel, medial aspect of right heel, arch of right foot and heel of right foot: pain, tenderness, ROM: intact in all extremities, Circulation is intact in all extremities. Sensation intact. Weight bearing: able to fully bear weight, Vital Signs: 18:14 Temp 98.5(TE); ld1 18:16 Pulse 91; Resp 18; Pulse Ox 97% on R/A; Weight 96.62 kg; Height 5 ft. 4 in. ; Pain 8/10;ld1 18:17 BP 125 / 66; ld1 20:05 BP 123 / 67; Pulse 84; Resp 18; Pulse Ox 98% ; cp4 18:16 Body Mass Index 36.56 (96.62 kg, 162.56 cm) ld1 18:16 Pain Scale: Adult ld1 MDM: 18:05 Medical Screening Exam initiated kb 23:05 Differential diagnosis: closed fracture, contusion, tendonitis. Data reviewed: vital kb signs, nurses notes. Counseling: I had a detailed discussion with the patient and/or guardian regarding the historical points, exam findings, and any diagnostic results supporting the discharge/admit diagnosis, radiology results, the need for outpatient follow up, a orthopedic surgeon, to return to the emergency department if symptoms worsen or persist or if there are any questions or concerns that arise at home. 06/04 18:16 Order name: Foot Right 3 View XRAY; Complete Time: 19:19 kb 06/04 19:49 Order name: Domo Wrap; Complete Time: 20:28 kb Administered Medications: No medications were administered Disposition Summary: 06/04/24 19:56 Discharge Ordered Notes: Location: Home kb Condition: Stable kb Diagnosis - Pain in right foot kb Followup: kb - With: Emergency Department - When: As needed - Reason: Worsening of condition Followup: kb - With: Private Physician - When: 2 - 3 days - Reason: Recheck today's complaints, Continuance of care, Re-evaluation by your physician Discharge Instructions: - Discharge Summary Sheet kb - Foot Pain kb Forms: - Medication Reconciliation Form kb - Antibiotic Education kb - Prescription Opioid Use kb - Patient Portal Instructions kb - Leadership Thank You Letter kb Prescriptions: - Diclofenac Sodium 75 mg Oral tablet, delayed release (enteric coated) - take 1 tablet ORAL route 2 times per day As needed; 30 tablet; Refills: 0, kb Product Selection Permitted Signatures: Dispatcher [employer] Eugenie Regan FNP-C FNP-Ckb Sims, Lauren, RN RN ld1
[2024-06-05 00:16] VITALS: TEMP 98.5
[2024-06-05 00:19] VITALS: BP 123/67; O2SAT 98
== END 2024-06-04 20:27 | disposition home or self-care (01) ==
LOC: ER 17:40
DX: M79.671 Pain in right foot (principal)
CPT/HCPCS: 99283